=== PATIENT | female | born 1960 | race Caucasian/White ===

== ENCOUNTER → 2017-11-27 08:41 | Outpatient (CLI) | payer OTHER, SELFPAY | PROVIDERS: Family Provider Nurse Practitioner; PCP Nurse Practitioner; Visit Provider Nurse Practitioner | DX: R94.31 Abnormal electrocardiogram [ECG] [EKG] (principal) | CPT/HCPCS: 93306 ==

== ENCOUNTER → 2018-01-28 10:30 | Outpatient (CLI) | payer OTHER, SELFPAY ==
--- NOTE | 2018-01-28 10:33 | BI_ITS ---
MAMMOGRAPHY - BILATERAL SCREENING REASON FOR EXAM: Female, 57 years old. Routine annual screening examination. PERTINENT HISTORY: Aunt with breast cancer. TECHNIQUE: Digital bilateral breast bridget (3D mammographic acquisition) in the CC and MLO projections. 2-D mediolateral oblique (MLO) and craniocaudad (CC) views of both breasts were obtained. CAD: Full Field Digital Mammography with Computer Added Detection was performed. COMPARISON: Comparison is made with prior study dated January 23, 2017 and February 07, 2016. FINDINGS: Breast Composition: The breasts are heterogeneously dense, which may obscure small masses. There are no dominant masses or suspicious calcifications. No other significant abnormalities are identified. There has been no significant change since the prior study. BI/SCREENING MAMM (CAD), BILAT IMPRESSION: Stable bilateral screening mammogram. Yearly follow-up mammogram recommended. (A) ASSESSMENT CATEGORY: BIRADS Category 1: Negative. A letter regarding these results will be sent to the patient by the facility within 30 days. Approximately 10% of breast cancers are not detected by mammography. A normal mammogram should not delay biopsy of a clinically suspicious abnormality. [id number] Electronically Signed: Anthony Bergeron MD at 13:15 EDT Tel [phone], Service support ,
--- NOTE | 2018-01-28 10:33 | BD_ITS ---
STUDY: DUAL ENERGY X-RAY ABSORPTIOMETRY / DXA REASON FOR EXAM: Female, 57 years old. The patient is postmenopausal. No loss of height. TECHNIQUE: Bone Mineral Density (BMD) measurements of lumbar spine and bilateral hips were obtained. COMPARISON: Comparison is made with prior examination dated November 22, 2015. FINDINGS: Lumbar Spine (L1-L4): g/cm2 (1.203) / T-score (0.2) / Z-score (1.3) Findings are suggestive of normal bone density with a low fracture risk. Left Femur Total: g/cm2 (0.859) / T-score (-1.2) / Z-score (-0.3) Left Femoral Neck: g/cm2 (0.848) / T-score (-1.4) / Z-score (-0.2) Right Femur Total: g/cm2 (0.840) / T-score (-1.3) / Z-score (-0.4) Right Femoral Neck: g/cm2 (0.844) / T-score (-1.4) / Z-score (-0.2) The T-Scores on the most recent prior examination were: Lumbar Spine (L1-L4): There has been worsening of bone density since the previous examination. Left Femur Total: which represents a worsening of 5.6%. Right Femur Total: which represents an improvement of 1.3%. BD/Dexa Bone Density Study IMPRESSION: The patient is considered osteopenic as outlined below according to World Brandon Organization (WHO) criteria with a moderate fracture risk. There has been worsening of bone density since the previous examination. Reference Information: The T-score is the number of standard deviations above or below the standard which is normal for young adults at their peak bone mineral density. The World Health Organization (WHO) interprets the T-scores as follows: Above -1 Normal bone density Between -1 and -2.5 Osteopenia Equal to / or below -2.5 Osteoporosis As a practical clinical guideline, osteopenia may be graded as follows: Mild -1 through -1.5 Moderate -1.6 through -2.0 Severe -2.1 through -2.4 The Z-score is the number of standard deviations above or below age-matched controls. A Z-score of less than -1.5 would be considered abnormal. References: 1. NIH Osteoporosis and Related Bone Diseases http://www.osteo.org 2. International Society for Clinical Densitometry http://www.iscd.org 3. National Osteoporosis Foundation http://www.nof.org Electronically Signed: Anthony Bergeron MD at 8:37 EDT Tel [phone], Service support ,
== END ==
PROVIDERS: Family Provider Nurse Practitioner; PCP Nurse Practitioner; Referring Provider Nurse Practitioner; Visit Provider Nurse Practitioner
DX: Z12.31 Encounter for screening mammogram for malignant neoplasm of breast (principal); Z78.0 Asymptomatic menopausal state; R94.31 Abnormal electrocardiogram [ECG] [EKG]; M85.80 Other specified disorders of bone density and structure, unspecified site
CPT/HCPCS: 77063; 77067; 77080

== ENCOUNTER → 2019-01-08 10:17 | Outpatient (CLI) | payer OTHER, SELFPAY ==
--- NOTE | 2019-01-08 10:19 | BI_ITS ---
BILATERAL DIGITAL MAMMOGRAM WITH TOMOSYNTHESIS: Mediolateraloblique and craniocaudal views demonstrate no evidence of dominant parenchymal masses. No cluster of microcalcifications or architectural distortion is seen. No evidence of skin thickening is identified There has been no significant change since 01/28/2018. Breast Density: The breast tissue is heterogeneously dense, which may obscure small masses. CAD was used to assist in final assessment. BI/SCREEN MAMM (CAD) W/JOE BILAT IMPRESSION: : NORMAL MAMMOGRAM BILATERALLY. ASSESSMENT CATEGORY: FINAL ASSESSMENT: BI-RAD CATEGORY II (BENIGN FINDING) YEARLY MAMMOGRAPHY RECOMMENDED Approximately 10% of breast cancers are not detected by mammography. A normal mammogram should not delay biopsy of a clinically suspicious abnormality. [id number] Electronically Signed: Neil Dong, at 17:46 EDT Tel , Service support ,
== END ==
PROVIDERS: Family Provider Nurse Practitioner; PCP Nurse Practitioner; Referring Provider Nurse Practitioner; Visit Provider Nurse Practitioner
DX: Z12.31 Encounter for screening mammogram for malignant neoplasm of breast (principal)
CPT/HCPCS: 77063; 77067

== ENCOUNTER → 2019-05-07 09:00 | Outpatient (CLI) | payer OTHER, SELFPAY ==
--- NOTE | 2019-05-07 09:25 | RAD_ITS ---
PROCEDURE: SMALL BOWEL SERIES DATE OF EXAMINATION: May 07, 2019. INDICATION: Female, 58 years old. 3 month history of left lower quadrant pain and constipation. PHYSICIAN: Anthony Bergeron M.D. FLUOROSCOPY TIME (if supplied): (0:31) minutes/seconds TECHNIQUE: Radiographic and fluoroscopic images were taken of the small intestine following the ingestion of barium. COMPARISON: None. FINDINGS: A preliminary supine KUB was obtained. There is an unremarkable bowel gas pattern. Fecal material is present throughout the colon. The lung bases are unremarkable. The osseous structures are normal. The patient orally ingested approximately 12 ounces of thin barium Normal visualized fundus, body, and antrum of the stomach. Normal duodenal bulb, C-loop, and proximal jejunum. Normal visualized mucosal folds of the jejunum and ileum. There are no demonstrated dilatations, strictures, or masses of the small intestine. There is no mass displacement of the loops of small intestine. There is a normal motor pattern with barium reaching the colon within approximately 60 minutes. Spot films under fluoroscopic observation demonstrated a normal terminal ileum and ileocecal valve. RAD/Small Bowel Series Only IMPRESSION: Normal small bowel series. Electronically Signed: Anthony Bergeron, at 14:09 EST , Service support ,
== END ==
PROVIDERS: PCP Nurse Practitioner; Referring Provider Nurse Practitioner; Visit Provider Nurse Practitioner
DX: R11.0 Nausea (principal)
CPT/HCPCS: 74250

== ENCOUNTER → 2019-05-11 08:11 | Outpatient (CLI) | payer OTHER, SELFPAY ==
--- NOTE | 2019-05-11 08:16 | US_ITS ---
STUDY: ABDOMINAL ULTRASOUND REASON FOR EXAM: Female, 58 years old. LEFT ABD PAIN RADIATING TO BACK, NAUSEA INTERMITTENT X 4 YEARS TECHNIQUE: Transabdominal ultrasound was performed with real-time and static hobbs scale imaging. TECHNICAL QUALITY: Adequate. COMPARISON: None. FINDINGS: Liver: The liver measures 14.0 cm. There is normal echogenicity of the liver. The bile ducts are within normal limits. There is hepatic color flow. The direction of portal flow is hepatopetal. There is no demonstrated mass lesion. Portal vein measurement: Gallbladder: Normal distended gallbladder. The gallbladder wall measures 2.3 mm. There is a negative sonographic Salazar''s sign. There is no pericholecystic fluid. There are no gallstones. Common Bile Duct (C.B.D.): The common bile duct measures 3.7 mm. Pancreas: Normal size of the head, body and tail of the pancreas. There is normal echogenicity of the pancreas. There is no demonstrated pancreatic mass or cyst. Spleen: Normal size of the spleen. The spleen measures 8.2 cm x 3.7 cm x 3.4 cm. Right Kidney: Normal size of the right kidney. The right kidney measures 10 cm x 5.3 cm x 4.6 cm. Normal renal cortex. The right cortex measures 1.1 cm. There is no demonstrated renal mass or cyst. There is no right hydronephrosis. Left Kidney: Normal size of the left kidney. The left kidney measures 10.4 cm x 4.6 cm x 5.8 cm. Normal renal cortex. The left cortex measures 1.3 cm. There is no demonstrated renal mass or cyst. There is no left hydronephrosis. Aorta: Unremarkable I.V.C.: The IVC is patent. There is no ascites. US/Abdomen Complete IMPRESSION: Normal abdominal ultrasound examination. Electronically Signed: Anthony Bergeron, at 15:48 EST , Service support ,
== END ==
PROVIDERS: PCP Nurse Practitioner; Referring Provider Nurse Practitioner; Visit Provider Nurse Practitioner
DX: R11.0 Nausea (principal)
CPT/HCPCS: 76700

== ENCOUNTER → 2020-01-27 10:45 | Outpatient (CLI) | payer OTHER, SELFPAY ==
--- NOTE | 2020-01-27 10:48 | BI_ITS ---
MAMMOGRAPHY - BILATERAL SCREENING REASON FOR EXAM: Female, 59 years old. Routine annual screening examination. PERTINENT HISTORY: Aunt with breast cancer. TECHNIQUE: Digital bilateral breast joe (3D mammographic acquisition) in the CC and MLO projections. 2-D mediolateral oblique (MLO) and craniocaudad (CC) views of both breasts were obtained. CAD: Full Field Digital Mammography with Computer Added Detection was performed. COMPARISON: Comparison is made with prior study dated 01/08/2019 and 01/28/2018. FINDINGS: Breast Composition: The breasts are extremely dense, which lowers the sensitivity of mammography. There are no dominant masses or suspicious calcifications. No other significant abnormalities are identified. There has been no significant change since the prior study. BI/SCREEN MAMM (CAD) W/JOE BILAT IMPRESSION: Stable bilateral screening mammogram. Yearly follow-up mammogram recommended. (A) ASSESSMENT CATEGORY: BIRADS Category 1: Negative. A letter regarding these results will be sent to the patient by the facility within 30 days. Approximately 10% of breast cancers are not detected by mammography. A normal mammogram should not delay biopsy of a clinically suspicious abnormality. [id number] Electronically Signed: Anthony Bergeron, at 12:20 EDT , Service support ,
--- NOTE | 2020-01-27 10:48 | BD_ITS ---
STUDY: DUAL ENERGY X-RAY ABSORPTIOMETRY / DXA REASON FOR EXAM: Female, 59 years old. UNIT AIDE TECH -- TAKES HRT -- TAKES ANTISEIZURE MED FOR MIGRAINES -- TAKES MULTIVITAMIN IRREGULARLY -- DOES MODERATE-HIGH AMOUNT OF EXERCISE -- FAMILY HX OF OSTEO- MOTHER -- NO ALYSSA TECHNIQUE: Bone Mineral Density (BMD) measurements of lumbar spine and bilateral hips were obtained. COMPARISON: Comparison is made with prior study dated 01/28/2018. FINDINGS: Lumbar Spine (L1-L4): g/cm2 (1.216) / T-score (0.3) / Z-score (1.6) Findings are suggestive of normal bone density with a low fracture risk. Left Femur Total: g/cm2 (0.859) / T-score (-1.2) / Z-score (-0.2) Left Femoral Neck: g/cm2 (0.851) / T-score (-1.3) / Z-score (-0.1) Right Femur Total: g/cm2 (0.858) / T-score (-1.2) / Z-score (-0.2) Right Femoral Neck: g/cm2 (0.840) / T-score (-1.4) / Z-score (-0.1) The T-Scores on the most recent prior examination were: Lumbar Spine (L1-L4): There has been improvement of bone density since the previous examination. Left Femur Total: which represents no significant change. . Right Femur Total: which represents an improvement of 2.1%. BD/Dexa Bone Density Study IMPRESSION: The patient is considered osteopenic as outlined below according to World Brandon Organization (WHO) criteria with a low fracture risk. There has been improvement of bone density since the previous examination. Reference Information: The T-score is the number of standard deviations above or below the standard which is normal for young adults at their peak bone mineral density. The World Health Organization (WHO) interprets the T-scores as follows: Above -1 Normal bone density Between -1 and -2.5 Osteopenia Equal to / or below -2.5 Osteoporosis As a practical clinical guideline, osteopenia may be graded as follows: Mild -1 through -1.5 Moderate -1.6 through -2.0 Severe -2.1 through -2.4 The Z-score is the number of standard deviations above or below age-matched controls. A Z-score of less than -1.5 would be considered abnormal. References: 1. NIH Osteoporosis and Related Bone Diseases www osteo.org 2. International Society for Clinical Densitometry www iscd.org 3. National Osteoporosis Foundation www nof.org Electronically Signed: Anthony Bergeron, at 15:56 EDT , Service support ,
== END ==
PROVIDERS: PCP Nurse Practitioner; Referring Provider Nurse Practitioner; Visit Provider Nurse Practitioner
DX: Z78.0 Asymptomatic menopausal state (principal); Z12.31 Encounter for screening mammogram for malignant neoplasm of breast
CPT/HCPCS: 77063; 77067; 77080

== ENCOUNTER → 2020-06-03 09:25 | Outpatient (CLI) | payer OTHER, SELFPAY ==
--- NOTE | 2020-06-03 09:27 | BI_ITS ---
MAMMOGRAPHY - UNILATERAL DIAGNOSTIC: RIGHT BREAST REASON FOR EXAM: Female, 59 years old. Tender right breast lump for one month. PERTINENT HISTORY: Aunt with breast cancer. TECHNIQUE: Digital unilateral breast bridget (3D mammographic acquisition) in the CC and MLO projections. 2-D mediolateral oblique (MLO) and craniocaudad (CC) views of the right breast were obtained. CAD: Full Field Digital Mammography with Computer Added Detection was performed. COMPARISON: Comparison is made with prior examination dated 01/27/2020. FINDINGS: Breast Composition: The breasts are extremely dense, which lowers the sensitivity of mammography. There are no dominant masses or suspicious calcifications. No other significant abnormalities are identified. BI/DIAG MAMM W/CAD, UNILAT IMPRESSION: Stable unilateral diagnostic mammogram. Correlation with a targeted ultrasound of the right breast is recommended. ASSESSMENT CATEGORY: BIRADS Category 0: Incomplete. Need additional imaging evaluation. A letter regarding these results will be sent to the patient by the facility within 30 days. Approximately 10% of breast cancers are not detected by mammography. A normal mammogram should not delay biopsy of a clinically suspicious abnormality. Electronically Signed: Anthony Bergeron MD at 10:30 EST , Service support ,
--- NOTE | 2020-06-03 09:27 | US_ITS ---
STUDY: ULTRASOUND BREAST - RIGHT REASON FOR EXAM: Female, 59 years old. Palpable lump in the right breast for 1 month. TECHNIQUE: Axial and longitudinal images of the RIGHT breast were performed with a high resolution ultrasound transducer. # OF IMAGES: 22 COMPARISON: Comparison is made with prior mammogram done earlier today. FINDINGS: RIGHT Breast: The palpable abnormality corresponds to dense fibroglandular tissue. US/Breast Limited Unilateral IMPRESSION: The palpable abnormality corresponds to dense fibroglandular tissue. ASSESSMENT CATEGORY: BIRADS Category 2: Benign. A letter regarding these results will be sent to the patient by the facility within 30 days. Electronically Signed: Anthony Bergeron MD at 11:12 EST , Service support ,
== END ==
PROVIDERS: PCP Nurse Practitioner; Referring Provider Obstetrics & Gynecology; Visit Provider Obstetrics & Gynecology
DX: N63.10 Unspecified lump in the right breast, unspecified quadrant (principal)
CPT/HCPCS: 76642; 77061; 77065; G0279

== ENCOUNTER 2020-06-09 15:21 | Outpatient (RCR) | payer OTHER, SELFPAY ==
[2020-06-09] MEDS: COVID-19 VACC, MRNA(PFIZER)/PF 30 MCG/0.3 ML SYRINGE IM (17:49)
[2020-06-30] MEDS: COVID-19 VACC, MRNA(PFIZER)/PF 30 MCG/0.3 ML SYRINGE IM (17:17)
== END 2020-09-06 23:59 ==
LOC: IMMUN 15:21
PROVIDERS: PCP Nurse Practitioner; Referring Provider Family Medicine; Visit Provider Family Medicine
DX: Z23 Encounter for immunization (principal)
CPT/HCPCS: 0001A; 0002A; 91300

== ENCOUNTER 2020-07-22 07:41 | Day surgery (SDC) | payer OTHER, SELFPAY ==
--- NOTE | 2020-07-14 15:56 | EKG12_ITS ---
Test Reason : PRE-OP Blood Pressure : / mmHG Vent. Rate : 076 BPM Atrial Rate : 076 BPM P-R Int : 148 ms QRS Dur : 088 ms QT Int : 394 ms P-R-T Axes : 066 016 044 degrees QTc Int : 443 ms Normal sinus rhythm Low voltage QRS Septal infarct , age undetermined Abnormal ECG Confirmed by BRADEN LÓPEZ, BEAU ([id number]), scientific editor ERMIAS ZAPATA ([id number]) on 07/15/2020 11:56:06 AM Referred By: Dariel Alba Confirmed By:BEAU FELICIANO MD
--- NOTE | 2020-07-15 11:41 | NURSING ---
pt reports she had second Pfizer Vaccine on 06/30/20
[2020-07-22] VITALS (9 sets, daily range): BP systolic 99–133; BP diastolic 60–80; PULSE 61–82; RESP 16–18; TEMP 36.1–37.1; O2SAT 98–100; BMI 22.1
[2020-07-22] MEDS: Lactated Ringers 1,000 ML 100 ML IV ×2 (08:10→10:36)
[2020-07-22 08:26] LABS: Anion Gap 5 (5-15); BUN 20 mg/dL (7-18); BUN/Creat Ratio 22.8 RATIO (10-20); Calcium,Total 8.8 mg/dL (8.5-10.1); Chloride 111 mmol/L (98-107); Creatinine, Serum 0.88 mg/dL (0.55-1.02); EST Glomerular Filtration Rate 69 mL/min (>60); Est Glom Filt Rate - Afr Amer 84 mL/min (>60); Estimated Creatinine Clearance 60.41 ml/min; Glucose 88 mg/dL (74-106); Potassium 3.7 mmol/L (3.5-5.1); Sodium Level 140 mmol/L (136-145)
--- NOTE | 2020-07-22 09:20 | TONS_PTH ---
PATIENT: SHARON ORR [place] [facility] [id number] AGE/SX: 59/F ROOM: RE07/22/[address]: Dr. Dariel Alba MD : 1960 BED: DIS: 07/22/2020 SPEC #: [id number] RECD: 07/22/20 10:56 STATUS: BENNY REZhane #: [id number] RHONA: 07/22/20 09:[address]: Dariel Alba DEPT: SURGICAL PATHOLOGY RECD BY: Julianne Ma ENTERED: 07/22/20 11:14 SP TYPE: TONSILS OTHR DR: REBEKAH Obrien Tissues: A - Tonsil, NOS B - Tonsil, NOS Procedures: Surgery Specimen Level III HEADER OPERATION: Tonsillectomy PRE-OP DIAGNOSIS: Chronic tonsillitis TISSUE SUBMITTED: A ? Right tonsil, B ? Left tonsil MICROSCOPIC DIAGNOSIS A. Right tonsil, tonsillectomy: Reactive lymphoid hyperplasia, consistent with chronic tonsillitis. Focal actinomyces colonization. B. Left tonsil, tonsillectomy: Reactive lymphoid hyperplasia, consistent with chronic tonsillitis. Focal actinomyces colonization. MOOSE:kwadwo 07/25/2020 MICROSCOPIC DESCRIPTION Slides are reviewed. GROSS DESCRIPTION A - Received in formalin labeled with the patient's name and designated right tonsil. The specimen consists of a tonsil that weighs 1.8 gm and measures 2 x 1.5 x 1 cm. The external surface is pink-ann, smooth, glistening and somewhat lobulated. Focally it is hemorrhagic, granular and bears cautery artifact. Serial cross sections through the tonsil reveal normal tonsillar architecture. The entire specimen is submitted in one cassette. B - Received in formalin labeled with the patient's name and designated left tonsil. The specimen consists of a tonsil that weighs 1.7 gm and measures 2.2 x 1.5 x 0.8 cm. The external surface is pink-ann, smooth, glistening and somewhat lobulated. Focally it is hemorrhagic, granular and bears cautery artifact. Serial cross sections through the tonsil reveal normal tonsillar architecture. The entire specimen is submitted in one cassette. / AM:kwadwo 07/22/20 TC:3 CPT: 25406 x2
--- NOTE | 2020-07-22 09:41 | PCM.OPRPT ---
Problem List (1) Chronic tonsillitis Status: Chronic Report of Operation Date of Procedure: 07/22/20 Pre-Operative Diagnosis: Chronic tonsillitis Post-Operative Diagnosis: Same Surgery/Procedure Performed:: Tonsillectomy with examination of nasopharynx Description of Surgical Findings:: Pau is a 59-year-old female with complaints of a draining fistulous tract of the right tonsil. Clinically there was noted to be purulence expressed with compression of the right tonsil and CT scan did show some asymmetry of the soft tissues on that side given these findings with a remote risk of malignancy considered surgical treatment for definitive evaluation was advised and she was agreeable to proceed. The risks, alternatives, potential complications, and benefits were discussed at length and any questions answered to the patient and/or caregiver's satisfaction. Witnessed informed consent was obtained in the office, and the patient and/or caregiver was agreeable to proceed. Procedure went as follows: The patient was identified in the preoperative holding, brought to the operating room, was placed under general anesthesia and intubated. When appropriate anesthesia was obtained, the head of bed was rotated and the patient prepped and draped in usual sterile fashion. A Tong Allen mouthgag was then placed and the patient suspended from the Alfred stand. The oral cavity was examined and noted to have 2+ cryptic tonsillar hypertrophy. Beginning on the right side, the right tonsil was then grasped with a curved tenaculum and dissected from the underlying capsule with monopolar cautery. This was then sent as specimen. Similar procedure was then completed on the contralateral side. Using a laryngeal mirror the adenoid bed was then visualized. This was noted to be involuted consistent with her age without significant asymmetry, ulcerations, or friability of the soft tissues. Palpation with a gloved finger again showed no submucosal masses or suspicious findings. The oral and nasal cavities were then irrigated with saline solution. An NG tube was then placed to decompress the stomach. The patient was then returned to anesthesia, revived and extubated having tolerated the procedure well. Type of Anesthesia:: General Anesthesiologist: Yash Chisholm Special Medications: none Specimen's removed: bilateral tonsils Drains: none Estimated Blood Loss (mL): 0 mL Fluids Replaced: 700 mL Grafts/Implants Used: none - Complications none - Admit VTE Documentation VTE Present on Admission: No VTE Mechan Device Prophylaxis: SCD's VTE Pharm Prophylaxis ordered?: No
--- NOTE | 2020-07-22 09:45 | DCINST_ITS ---
Discharge Diet: No Restrictions Discharge Activity: Return to Normal Activity Call your doctor if your incision/area has: Sudden Increased Bleeding Call your doctor if you observe: Fever of 101 or Higher, Uncontrolled pain Allergies/Adverse Reactions: Allergies No Known Allergies Allergy (Verified 07/22/20 08:14) Medications to take at Discharge Cholecalciferol (Vitamin D3) [Vitamin D3] 2,000 unit PO DAILY 07/15/20 Citalopram [Celexa] 10 mg PO DAILY 07/15/20 MedroxyPROGESTERone [Cycrin,Provera] 2.5 mg PO DAILY 07/15/20 Metaxalone [Skelaxin] 800 mg PO Q6H PRN PRN 07/15/20 Multivitamin [Multiple Vitamins] 1 each PO DAILY 07/15/20 RX: Estradiol 0.5 mg PO DAILY 07/15/20 Rizatriptan Benzoate [Maxalt] 5 mg PO DAILY PRN PRN 07/15/20 Topiramate [Topamax] 50 mg PO BID 07/15/20 Uvrelvy 1 tablet SL DAILY PRN PRN 07/15/20 Primary Care Physician: Chelsea Mahoney LONG WALL SHEAR OPERATOR, LONG WALL SHEAR OPERATOR-C [Primary Care Provider] - Test Results: Test results from this visit will be discussed in further detail at your follow- up appointment, if applicable. Please Follow Up With: Dariel Alba MD When: 2 weeks
[2020-07-22] MEDS: Ibuprofen 200 MG Tablet 400 MG PO (13:18)
== END 2020-07-22 14:39 | disposition home or self-care (01) ==
LOC: SDC 07:42 → AC 07:42
PROVIDERS: PCP Nurse Practitioner; Referring Provider Otolaryngology; Visit Provider Otolaryngology
PROC: (CPT 42826; principal; 2020-07-22 09:05)
DX: J35.01 Chronic tonsillitis (principal); G43.109 Migraine with aura, not intractable, without status migrainosus; Z79.899 Other long term (current) drug therapy
CPT/HCPCS: 00170; 42826; 80048; 88304; 93005; J7120; J2405

== ENCOUNTER 2020-07-25 22:02 | Day surgery (SDC) | payer OTHER, SELFPAY ==
[2020-07-22 08:17] VITALS: BMI 22.1
--- NOTE | 2020-07-25 23:19 | PCM.OPRPT ---
Problem List (1) Post-tonsillectomy hemorrhage Status: Acute Report of Operation Date of Procedure: 07/25/20 Pre-Operative Diagnosis: Post-tonsillectomy bleeding Post-Operative Diagnosis: Same Surgery/Procedure Performed:: Control of post-tonsillectomy bleeding Description of Surgical Findings:: Pau is a 59-year-old female who presents with profuse bright red bleeding status post tonsillectomy. She reported she had been doing well in her postoperative course until she noticed a phlegm-like sensation in her throat and began to expectorate large amounts of bright red bleeding. She presented to the emergency apartment for evaluation where a large organized clot was noted over the right tonsillar fossa and return to the OR for definitive control given the amount of reported bleeding was offered and she was agreeable to proceed. The risks, alternatives, potential complications, and benefits were discussed at length and any questions answered to the patient and/or caregiver's satisfaction. Witnessed informed consent was obtained in the office, and the patient and/or caregiver was agreeable to proceed. Procedure went as follows: The patient was identified in the preoperative holding and brought to the operating room where she was placed under general anesthesia and intubated using rapid sequence technique. When appropriate anesthesia was obtained, the head of bed was rotated and the patient prepped and draped in usual sterile fashion. A Tong-Allen mouthgag was then placed and the patient suspended from the Alfred stand. The oral cavity was examined and there is noted to be a large organized clot arising from the mid right tonsillar fossa. This was removed with a forceps revealing a single small arterial bleed site that was cauterized with suction electrocautery. The tonsillar fossa were further cleansed of their fibrinous material and no other sites of bleeding were identified. The oral cavity was then irrigated and suctioned clear of any residual blood clots. An NG tube was then placed and the suction aspirated 150 cc of coffee-ground material which was then irrigated with saline until clear. The NG tube was then made moved and the patient returned to anesthesia where she was advised and expert without complication having tolerated procedure well. Type of Anesthesia:: General Anesthesiologist: Yash Chisholm Special Medications: none Specimen's removed: none Drains: none Estimated Blood Loss (mL): 0 mL Fluids Replaced: 400 mL Grafts/Implants Used: none - Complications none - Admit VTE Documentation VTE Present on Admission: No VTE Mechan Device Prophylaxis: None VTE Pharm Prophylaxis ordered?: No Reason prophylaxis not ordered:: Procedure Not Indicated
--- NOTE | 2020-07-25 23:24 | DCINST_ITS ---
- Discharge Diagnoses Current Active Problems: Current Active and Chronic Problems Post-tonsillectomy hemorrhage (Acute) You will use the following diet at home:: No restrictions Call your doctor if your incision/area has: Sudden Increased Bleeding Call your doctor if you observe: Fever of 101 or Higher Allergies/Adverse Reactions: Allergies No Known Allergies Allergy (Verified 07/22/20 08:14) Medications to take at Discharge Cholecalciferol (Vitamin D3) [Vitamin D3] 2,000 unit PO DAILY 07/15/20 Citalopram [Celexa] 10 mg PO DAILY 07/15/20 Estradiol 0.5 mg PO DAILY 07/15/20 MedroxyPROGESTERone [Provera] 2.5 mg PO DAILY 07/15/20 Metaxalone [Skelaxin] 800 mg PO Q6H PRN PRN 07/15/20 Multivitamin [Multiple Vitamins] 1 each PO DAILY 07/15/20 Rizatriptan Benzoate [Maxalt] 5 mg PO DAILY PRN PRN 07/15/20 Topiramate [Topamax] 50 mg PO BID 07/15/20 Uvrelvy 1 tablet SL DAILY PRN PRN 07/15/20 Acetaminophen [Tylenol] 500 mg PO Q4H PRN PRN tablet 07/22/20 Ibuprofen [Motrin] 400 mg PO Q6H PRN PRN tablet 07/22/20 Primary Care Physician: Chelsea Mahoney ASSISTANT PROFESSOR OF MATHEMATICS, ASSISTANT PROFESSOR OF MATHEMATICS-C [Primary Care Provider] - Test Results: Test results from this visit will be discussed in further detail at your follow- up appointment, if applicable. Please Follow Up With: Dariel Alba MD When: 2 weeks
--- NOTE | 2020-07-25 23:29 | ED.RN ---
#[address] VAZQUEZ REQUEST. CHG BATH GIVEN FROM NECK TO WAIST. PT PLACED ON CLEAN LINENS FOR TRANSPORT.
[2020-07-25 23:30] VITALS: BP 117/74; PULSE 77; RESP 18; TEMP 36.3; O2SAT 100
[2020-07-25 23:45] VITALS: BP 113/83; PULSE 85; RESP 18; O2SAT 97
[2020-07-26] VITALS: BP 120/78; PULSE 88; RESP 18; TEMP 36.3; O2SAT 99
== END 2020-07-26 00:32 | disposition home or self-care (01) ==
LOC: SDC 22:07 → AC 22:42
PROVIDERS: PCP Nurse Practitioner; Visit Provider Otolaryngology
PROC: (CPT 42960; principal; 2020-07-25 22:45)
DX: J95.830 Postprocedural hemorrhage of a respiratory system organ or structure following a respiratory system procedure (principal); G43.909 Migraine, unspecified, not intractable, without status migrainosus; Z79.899 Other long term (current) drug therapy
CPT/HCPCS: 00170; 42960; J2405

== ENCOUNTER → 2020-12-23 08:10 | Outpatient (CLI) | payer OTHER, SELFPAY ==
--- NOTE | 2020-12-23 08:21 | BI_ITS ---
MAMMOGRAPHY - BILATERAL SCREENING REASON FOR EXAM: Female, 60 years old. Routine annual screening examination. PERTINENT HISTORY: Aunt with breast cancer. TECHNIQUE: Digital bilateral breast joe (3D mammographic acquisition) in the CC and MLO projections. 2-D mediolateral oblique (MLO) and craniocaudad (CC) views of both breasts were obtained. CAD: Full Field Digital Mammography with Computer Added Detection was performed. COMPARISON: Comparison is made with prior study dated 01/27/2020 and 06/03/2020. FINDINGS: Breast Composition: The breasts are extremely dense, which lowers the sensitivity of mammography. There are no dominant masses or suspicious calcifications. No other significant abnormalities are identified. There has been no significant change since the prior study. BI/SCRN MAMM (CAD)W/JOE BILAT IMPRESSION: Stable bilateral screening mammogram. Yearly follow-up mammogram recommended. (A) ASSESSMENT CATEGORY: BIRADS Category 1: Negative. A letter regarding these results will be sent to the patient by the facility within 30 days. Approximately 10% of breast cancers are not detected by mammography. A normal mammogram should not delay biopsy of a clinically suspicious abnormality. [id number] Electronically Signed: Anthony Bergeron MD at 9:41 EDT , Service support ,
== END ==
PROVIDERS: PCP Nurse Practitioner; Referring Provider Nurse Practitioner; Visit Provider Nurse Practitioner
DX: Z12.31 Encounter for screening mammogram for malignant neoplasm of breast (principal)
CPT/HCPCS: 77063; 77067

== ENCOUNTER → 2021-10-25 | Outpatient (CLI) | payer OTHER, SELFPAY ==
[2021-10-30 12:13] LABS: HPV APTIMA, High Risk Negative (Negative)
== END | disposition home or self-care (01) ==
PROVIDERS: PCP Nurse Practitioner; Visit Provider Nurse Practitioner Women's Health
DX: Z12.4 Encounter for screening for malignant neoplasm of cervix (principal); Z78.0 Asymptomatic menopausal state
CPT/HCPCS: 87624; 88175; G0145

== ENCOUNTER → 2021-12-27 | Outpatient (CLI) | payer OTHER, SELFPAY ==
--- NOTE | 2021-12-27 12:24 | BI_ITS ---
MAMMOGRAPHY - BILATERAL SCREENING REASON FOR EXAM: Female, 61 years old. Routine annual screening examination. PERTINENT HISTORY: Grandmother with breast cancer. Aunt with breast cancer. TECHNIQUE: Digital bilateral breast joe (3D mammographic acquisition) in the CC and MLO projections. 2-D mediolateral oblique (MLO) and craniocaudad (CC) views of both breasts were obtained. CAD: Full Field Digital Mammography with Computer Added Detection was performed. COMPARISON: Comparison is made with prior study dated 12/23/2020 and 06/03/2020. FINDINGS: Breast Composition: The breasts are extremely dense, which lowers the sensitivity of mammography. There are no dominant masses or suspicious calcifications. No other significant abnormalities are identified. There has been no significant change since the prior study. BI/SCRN MAMM (CAD)W/JOE BILAT IMPRESSION: Stable bilateral screening mammogram. Yearly follow-up mammogram recommended. (A) ASSESSMENT CATEGORY: BIRADS Category 1: Negative. A letter regarding these results will be sent to the patient by the facility within 30 days. Approximately 10% of breast cancers are not detected by mammography. A normal mammogram should not delay biopsy of a clinically suspicious abnormality. [id number] Electronically Signed: Anthony Bergeron MD at 13:05 EDT ,
== END | disposition home or self-care (01) ==
LOC: OPBI 12:22
PROVIDERS: PCP Nurse Practitioner; Visit Provider Nurse Practitioner Women's Health
DX: Z12.31 Encounter for screening mammogram for malignant neoplasm of breast (principal); Z80.3 Family history of malignant neoplasm of breast
CPT/HCPCS: 77063; 77067

== ENCOUNTER → 2022-01-31 | Outpatient (CLI) | payer OTHER, SELFPAY ==
--- NOTE | 2022-01-31 10:11 | BD_ITS ---
STUDY: DUAL ENERGY X-RAY ABSORPTIOMETRY / DXA REASON FOR EXAM: Female, 61 years old. [id number] TECHNIQUE: Bone Mineral Density (BMD) measurements of lumbar spine and bilateral hips were obtained. COMPARISON: Comparison is made with prior study dated 01/27/2020. FINDINGS: Lumbar Spine (L1-L4): g/cm2 (1.080) / T-score (0.3) / Z-score (1.9) Findings are suggestive of normal bone density with a low fracture risk. Left Femur Total: g/cm2 (0.796) / T-score (-1.2) / Z-score (-0.1) Left Femoral Neck: g/cm2 (0.696) / T-score (-1.4) / Z-score (0.1) Right Femur Total: g/cm2 (0.789) / T-score (-1.3) / Z-score (-0.1) Right Femoral Neck: g/cm2 (0.733) / T-score (-1.0) / Z-score (0.4) The T-Scores on the most recent prior examination were: Lumbar Spine (L1-L4): There has been improvement of bone density since the previous examination. Left Femur Total: which represents no significant change. . Right Femur Total: which represents a worsening of 0.9%. BD/Dexa Bone Density Study IMPRESSION: The patient is considered osteopenic as outlined below according to World Brandon Organization (WHO) criteria with a low fracture risk. There has been no change of bone density since the previous examination. Reference Information: The T-score is the number of standard deviations above or below the standard which is normal for young adults at their peak bone mineral density. The World Health Organization (WHO) interprets the T-scores as follows: Above -1 Normal bone density Between -1 and -2.5 Osteopenia Equal to / or below -2.5 Osteoporosis As a practical clinical guideline, osteopenia may be graded as follows: Mild -1 through -1.5 Moderate -1.6 through -2.0 Severe -2.1 through -2.4 The Z-score is the number of standard deviations above or below age-matched controls. A Z-score of less than -1.5 would be considered abnormal. References: 1. NIH Osteoporosis and Related Bone Diseases www osteo.org 2. International Society for Clinical Densitometry www iscd.org 3. National Osteoporosis Foundation www nof.org Electronically Signed: Anthony Bergeron MD at 9:12 EDT ,
== END | disposition home or self-care (01) ==
PROVIDERS: PCP Nurse Practitioner; Visit Provider Nurse Practitioner Family
DX: Z13.820 Encounter for screening for osteoporosis (principal); Z78.0 Asymptomatic menopausal state
CPT/HCPCS: 77080